=== PATIENT | female | born 1975 ===

== ENCOUNTER 2020-07-06 13:01 | Emergency (ER) | payer BC, SELFPAY ==
[2020-07-06 13:13] VITALS: BP 145/71; PULSE 80; RESP 18; TEMP 36.7; O2SAT 100
--- NOTE | 2020-07-06 13:16 | ED.ALLEREA ---
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 Patient states that she is always gotten large erythematous areas but these are larger than normal. Patient says the itching has not stopped and that is what brought her in today Related Data Home Medications Medication Instructions Recorded Confirmed conj estrog-medroxyprogest ida 1 tablet DAILY 07/06/20 07/06/20 [Prempro] levothyroxine [Synthroid] 75 mcg DAILY 07/06/20 07/06/20 Allergies Allergy/AdvReac Type Severity Reaction Status Date / Time Sulfa (Sulfonamide Allergy Unknown Verified 02/17/09 15:42 Antibiotics) sulfanilamide Allergy Unknown Verified 08/05/12 09:59 Review of Systems Review of Systems: Narrative: CONSTITUTIONAL: Denies fever, chills, or sweats. EYES: Denies visual changes, redness, or discharge. ENT: Denies rhinorrhea, congestion, sore throat, or otalgia. CARDIOVASCULAR:Denies chest pain, palpitations, or edema. RESPIRATORY: Denies cough or dyspnea. GASTROINTESTINAL: Denies abdominal pain, nausea, vomiting, or diarrhea. GENITOURINARY: Denies dysuria or hematuria. SKIN: Reports rash or itching. MUSCULOSKELETAL:Denies back pain, joint pain, or myalgia. NEUROLOGIC: Denies headache, numbness, or weakness. PSYCHIATRIC:Denies anxiety or depression [facility] Family History Family History (Updated 06/02/16 @ 23:21 by DOCTOR UNKNOWN) Mother Hypertension Patient's mother is in good health Father Patient's father is in good health Family history of diabetes mellitus in first degree relative Sibling Patient's sister is in good health Social History Social History Smoking status: Never smoker Gender identity (if verbalized by the patient): Female Comments At time as signature, I have reviewed and agree with nursing past medical, social, surgical and family history. Please see nursing chart for further information. There is no relevant family history pertinent to the presenting complaint. Exam Narrative: Exam Narrative: GENERAL:Well-appearing, well-nourished, and in no acute distress. HEAD:Normocephalic, atraumatic. EYES: PERRLA and EOMI. ENT: Nares clear, no rhinorrhea or epistaxis. Mucous membranes moist. NECK: Supple. CHEST: Clear to auscultation. No respiratory distress. HEART: Regular rate and rhythm. No murmur heard. Normal peripheral pulses. ABDOMEN: Soft, nontender, nondistended, normal active bowel sounds. EXTREMITIES: Normal range of motion. No edema. SKIN: Warm, dry, large circular erythematous areas on bilateral inner thighs left chest wall left upper forearm. NEURO: No focal deficits. Alert and oriented x3. MDM - Allergic Reaction Differential Diagnosis Differential diagnosis: Likely anaphylaxis, allergic reaction, angioedema, contact dermatitis, adverse reaction to drug, viral enanthem and urticaria Discharge Plan Discharge Clinical Impression: Urticaria Allergic reaction Qualifiers: Encounter type: initial encounter Qualified Code(s): T78.40XA - Allergy, unspecified, initial encounter Patient Disposition: Home, Self-Care Condition: Stable Instructions: Antibiotic Form, Urticaria (ED), General Allergic Reaction (ED) Additional Instructions: Use skin creams/lotion, such as those containing calamine or pramoxine to reduce itchiness Avoid scratching when possible to prevent worsening of the condition and disruption of the skin that could lead to bacterial infection To relieve itching, place a cool washcloth or some ice over the area that itches, rather than scratching Return to the office or seek ER visit if condition is not improving or worsens with fever, swelling, difficulty breathing or swallowing. Prescriptions: New prednisone 10
== END 2020-07-06 13:34 | disposition home or self-care (01) ==
PROVIDERS: Emergency Provider Nurse Practitioner Family
DX: L50.0 Allergic urticaria (principal); E03.9 Hypothyroidism, unspecified
CPT/HCPCS: 99213; G0463

== ENCOUNTER 2022-09-09 13:17 | Emergency (ER) | payer BC, SELFPAY ==
[2022-09-09 13:42] VITALS: BP 108/75; PULSE 96; RESP 18; TEMP 36.3; O2SAT 99
--- NOTE | 2022-09-09 14:22 | ED.GENADULT ---
HPI - General Adult General Chief complaint: Nausea/Vomiting/Diarrhea Stated complaint: Dizziness,Nausea Time Seen by Provider: 09/09/22 14:12 Source: patient Mode of arrival: ambulatory Limitations: no limitations History of Present Illness HPI narrative: Patient presents today complaining of an episode of faintness, dizziness, and nausea at home this morning. Patient was working outside going up and down a ladder with her when she felt these symptoms and had to lay down. States the symptoms lasted for about 15 minutes and reports now she only feels fatigued. States she has had many episodes such as this in the past, but they are typically brought on when she exerts herself. States she does not feel that she exerted herself today and is wondering why this episode was brought on. Her denies recent illness, chest pain, shortness of breath, abdominal pain. Related Data Home Medications Medication Instructions Recorded Confirmed conj estrogen-medroxyprogesterone 1 tablet DAILY 07/06/20 09/09/22 0.3 mg-1.5 mg tablet (Prempro) levothyroxine 75 mcg tablet 75 mcg DAILY 07/06/20 09/09/22 (Synthroid) Allergies Allergy/AdvReac Type Severity Reaction Status Date / Time Sulfa (Sulfonamide AdvReac Mild Hives Verified 09/09/22 14:01 Antibiotics) sulfanilamide AdvReac Mild Hives Verified 09/09/22 14:01 Review of Systems Review of Systems: CONSTITUTIONAL: Denies body aches, fever, chills, or sweats.+ fatigue EYES: Denies visual changes, redness, or discharge. ENT: Denies rhinorrhea, congestion, sore throat, or otalgia. CARDIOVASCULAR: Denies chest pain, palpitations, or edema. RESPIRATORY: Denies cough or dyspnea. GASTROINTESTINAL: Denies abdominal pain, nausea, vomiting, or diarrhea. GENITOURINARY: Denies dysuria or hematuria. SKIN: Denies rash, itching, or wounds. MUSCULOSKELETAL: Denies back pain, joint pain, or myalgia. NEUROLOGIC: Denies headache, numbness, tingling, or weakness.+ dizziness, faintness-resolved PSYCH: Denies depression or anxiety. [facility] Past Medical History Medical History (Updated 09/09/22 @ 14:27 by Veronica Castellon, BUSINESS CENTER REPRESENTATIVE, ) Hypothyroidism Family History Family History Mother Hypertension Patient's mother is in good health Father Patient's father is in good health Family history of diabetes mellitus in first degree relative Sibling Patient's sister is in good health Social History Social History Smoking status: Never smoker Gender identity (if verbalized by the patient): Female Comments At time of signature, I have reviewed and agree with nursing past medical, surgical, social and family history unless otherwise noted. Please see nursing chart for further information. There is no relevant family history pertinent to the presenting complaint Exam Narrative: GENERAL: Well-appearing, well-nourished, and in no acute distress. HEAD: Normocephalic, atraumatic. EYES: EOMI. No redness or drainage. Conjunctivae normal. ENT: Mucous membranes pink and moist. Nares clear. No rhinorrhea. TMs normal bilaterally. Throat normal. Uvula midline. NECK: Normal AROM. Supple. No lymphadenopathy. CHEST: No respiratory distress. Clear to auscultation. HEART: Regular rate and rhythm. No murmur appreciated. Normal peripheral pulses. EXTREMITIES: Normal range of motion. No edema. SKIN: Warm, dry, no rash. Capillary refill normal. Normal skin turgor. NEURO: No focal deficits. Alert and oriented x3. Gait steady. PSYCH: Normal affect. No signs of depression or anxiety. Course Course Emergency Course: Patient is no longer experiencing her earlier symptoms. Her episode this morning is similar to past episodes. Discussed seeing how she feels the rest of the weekend and if she still feels not back to baseline, following up with her doctor next week. Level of Ca
== END 2022-09-09 14:28 | disposition home or self-care (01) ==
PROVIDERS: Emergency Provider Nurse Practitioner
DX: R53.83 Other fatigue (principal); E03.9 Hypothyroidism, unspecified
CPT/HCPCS: 87081; 87804; 87880; 99213; G0463

== ENCOUNTER 2023-06-01 10:19 | Emergency (ER) | payer BC, SELFPAY ==
[2023-06-01 10:29] VITALS: BP 130/70; PULSE 70; RESP 16; TEMP 36.6; O2SAT 99
--- NOTE | 2023-06-01 10:50 | ED.URI ---
HPI - URI/Sore Throat General Chief Complaint: Upper Respiratory Infection Stated Complaint: Sore Throat,Lt Ear Irritation Time Seen by Provider: 06/01/23 10:52 History of Present Illness HPI Narrative: 48-year-old female presented for complaint of left ear pain, onset last night. She states the pain is slightly better today. Rates pain 5/10. She denies ear drainage, tinnitus, dizziness, nausea, vomiting, fevers or chills. She also endorses chronic intermittent sore throat, stating she never has ear pain associated with it. She relates sore throat to her thyroid medication. She denies sick contacts. She took ibuprofen last night for pain. Denies any other symptoms. Related Data Home Medications Medication Instructions Recorded Confirmed conj estrogen-medroxyprogesterone 1 tablet DAILY 07/06/20 06/01/23 0.3 mg-1.5 mg tablet (Prempro) levothyroxine 75 mcg tablet 75 mcg DAILY 07/06/20 06/01/23 (Synthroid) Allergies Allergy/AdvReac Type Severity Reaction Status Date / Time guaifenesin [From Entex [place]] AdvReac Mild Hives Verified 06/01/23 10:46 phenylephrine [From Entex [place]] AdvReac Mild Hives Verified 06/01/23 10:46 phenylpropanolamine AdvReac Mild Hives Verified 06/01/23 10:46 [From Entex [place]] Sulfa (Sulfonamide AdvReac Mild Hives Verified 06/01/23 10:36 Antibiotics) sulfanilamide AdvReac Mild Hives Verified 06/01/23 10:36 Review of Systems Review of Systems: CONSTITUTIONAL: Denies body aches, fever, chills, or sweats. EYES: Denies visual changes, redness, or discharge. ENT: Denies rhinorrhea, congestion, reports otalgia. CARDIOVASCULAR: Denies chest pain, palpitations, or edema. RESPIRATORY: Denies dyspnea. GASTROINTESTINAL: Denies abdominal pain, nausea, vomiting, or diarrhea. SKIN: Denies rash, itching, or wounds. MUSCULOSKELETAL: Denies back pain, joint pain, or myalgia. NEUROLOGIC: Denies headache PMFSH Past Medical History Medical History Hypothyroidism Family History Family History Mother Hypertension Patient's mother is in good health Father Patient's father is in good health Family history of diabetes mellitus in first degree relative Sibling Patient's sister is in good health Social History Social History Smoking status: Never smoker Gender identity (if verbalized by the patient): Female Exam Narrative: GENERAL: well-appearing, no acute distress. EYES: conjunctivae clear ENT: Mucous membranes moist. Right TM pearly fermin with normal light reflex; Left TM erythematous and bulging. no tragal tenderness. Oropharynx not erythematous, no Tonsillar enlargement or exudate. No drooling, no hoarseness, no trismus, uvula midline. No tripod positioning, hot potato voice, or soft palate swelling. NECK: Supple. No lymphadenopathy CHEST: Clear to auscultation, breath sounds equal. No respiratory distress, speaks in full sentences. HEART: Regular rate and rhythm. No murmur heard. SKIN: Warm, dry, no rash. NEURO: Alert and oriented x3. Course Course Emergency Course: Patient is aware of diagnosis, understands and agrees to treatment plan. Anticipatory guidance given. Patient agrees to follow-up as directed and is aware of reasons to seek care at the emergency department. Portions of this record may have been created with voice recognition software Level of Care: Express Care Visit Vital Signs Vital signs: Vital Signs Temperature 97.8 F 06/01/23 10:29 Pulse Rate 70 06/01/23 10:29 Respiratory Rate 16 06/01/23 10:29 Blood Pressure 130/70 06/01/23 10:29 Pulse Oximetry 99 06/01/23 10:29 Oxygen Delivery Room Air 06/01/23 10:29 Temperature 97.8 F 06/01/23 10:29 Pulse Rate 70 06/01/23 10:29 Respiratory Rate 16 06/01/23 10:29 Blood Pressure 130/70 06/01/23 10:
== END 2023-06-01 11:02 | disposition home or self-care (01) ==
PROVIDERS: Emergency Provider Nurse Practitioner Family
DX: H66.92 Otitis media, unspecified, left ear (principal); E03.9 Hypothyroidism, unspecified
CPT/HCPCS: 99213; G0463

== ENCOUNTER 2025-04-28 20:52 | Emergency (ER) | payer BC, SELFPAY ==
--- NOTE | ~2025-04-28 | CT_ITS ---
CTA brain carotid Ordering provider: Ezra Ortega MD History: . eye change/neck surgery 04/22. right eye dilated . Comparison: None. Technique: CT angiogram head and neck was performed following timed intravenous injection of contrast . Thin slice axial images and reformatted coronal images were obtained. Three dimensional reformatted images of the brain were also obtained using a [employer] workstation. FINDINGS: HEAD: --ANTERIOR AND MIDDLE CEREBRAL ARTERIES AND BRANCHES: Normal caliber and contour. --INTERNAL CAROTID ARTERIES: Normal caliber and contour. --BASILAR ARTERY AND BRANCHES: Normal caliber and contour. No atheromatous disease. 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 --ANEURYSM: None visualized. --BRAIN: The ventricles are normal in size, shape and position. There is no mass, mass effect or midline shift. There is no abnormal extra-axial fluid collection or intracranial hemorrhage. Visualized paranasal sinuses are clear. The mastoid air cells are well aerated. No acute displaced fractures within the overlying cranium. NECK: --RIGHT CERVICAL CAROTID SYSTEM: Normal caliber and contour. Percent stenosis per NASCET criteria is 0% No carotid dissection. --LEFT CERVICAL CAROTID SYSTEM: Normal caliber and contour. Percent stenosis per NASCET criteria is 0% No carotid dissection. --VERTEBRAL ARTERIES: Normal caliber and contour. --VISUALIZED AORTIC ARCH AND BRANCHING VESSELS: Normal caliber and contour. No significant atheromato us disease. --SOFT TISSUES: Postoperative change is identified within the soft tissues anterior to the cervical s pine, consistent with recent intervention. No acute hemorrhage is appreciated. Trace soft tissue swelling, right greater than left, but not at the level of the carotid artery bifur cation, as one would expect from patient's presenting symptoms. --CERVICAL SPINE: Anterior fixation at the levels of C4 through C7. IMPRESSION: 1. Normal CTA head and neck. Percent stenosis per NASCET criteria is 0% Reviewed, dictated and finalized at location A.
[2025-04-28 21:01] VITALS: BP 136/70; PULSE 87; RESP 18; TEMP 36.3; O2SAT 100
[2025-04-28 21:25] LABS: Basophils Absolute Auto 0.1 K/mm3 (0.0-0.1); Basophils Percent Auto 0.6 % (0.2-1.2); Eosinophils Absolute Auto 0.6 K/mm3 (0-0.3); Eosinophils Percent Auto 5.8 % (0-4.4); Hematocrit 38.3 % (37.0-47.0); Hemoglobin 12.5 g/dL (12.0-15.0); Immature Granulocyte Absolute 0.02 K/mm3 (0.00-0.031); Immature Granulocyte Percent A 0.2 % (0-0.5); Lymphocytes Absolute Auto 3.41 K/mm3 (0.9-3.2); Lymphocytes Percent Auto 35.7 % (18.3-44.2); Mean Corpuscular HGB Conc 32.6 g/dl (32-36); Mean Corpuscular Hemoglobin 27.7 pg (26-34); Mean Corpuscular Volume 84.9 fl (80-100); Mean Platelet Volume 8.9 fl (7.4-10.4); Monocytes Absolute Auto 0.7 K/mm3 (0.1-0.6); Neutrophils Absolute Auto 4.8 K/mm3 (1.3-6.7); Neutrophils Percent Auto 50.7 % (45.5-73.1); Platelet Count Result 359 k/mm3 (150-375); Red Blood Count 4.51 M/mm3 (4.2-5.4); Red Cell Distribution Width 13.5 % (11.5-14.5); White Blood Count 9.6 K/mm3 (4.5-10.0)
--- NOTE | 2025-04-28 21:25 | ED.GENADULT ---
HPI - General Adult General Chief complaint: Eye Problems Stated complaint: dilated right eye, neck surgery 04/22 Time Seen by Provider: 04/28/25 21:09 History of Present Illness HPI narrative: 49-year-old female present to the emergency department for evaluation for right eye pupil dilation that she noticed acutely this evening. Patient states she has had some change in patient over the last few days where she reports she has needed her reading glasses more often. Patient did have spinal surgery at [facility] few weeks ago. Patient denies any recent falls or injuries. Patient denies any focal numbness or weakness. Related Data Home Medications ?Medication ?Instructions ?Recorded ?Confirmed ?Last Taken ?Type conj estrogen-medroxyprogesterone 1 tablet DAILY 07/06/20 06/01/23 Unknown History 0.3 mg-1.5 mg tablet (Prempro) levothyroxine 75 mcg tablet 75 mcg DAILY 07/06/20 06/01/23 Unknown History (Synthroid) Allergies Allergy/AdvReac Type Severity Reaction Status Date / Time guaifenesin (From Entex [place]) AdvReac Mild Hives Verified 06/01/23 10:46 phenylephrine (From Entex [place]) AdvReac Mild Hives Verified 06/01/23 10:46 phenylpropanolamine (From AdvReac Mild Hives Verified 06/01/23 10:46 Entex [place]) Sulfa (Sulfonamide AdvReac Mild Hives Verified 06/01/23 10:36 Antibiotics) sulfanilamide AdvReac Mild Hives Verified 06/01/23 10:36 Review of Systems Review of Systems: All systems reviewed & are unremarkable except as noted in HPI and below PMFSH Past Medical History Medical History Hypothyroidism Family History Family History Mother Hypertension Patient's mother is in good health Father Patient's father is in good health Family history of diabetes mellitus in first degree relative Sibling Patient's sister is in good health Social History Social History Smoking status: Never smoker Gender identity (if verbalized by the patient): Female Exam Narrative: APPEARANCE: Well appearing, no pain, no distress, well-nourished. HEAD: normocephalic, atraumatic. EYES: Mild dilation of right pupil compared to left. Patient does have some constriction of the right pupil with light and patient does have mild consensual pupil constriction when shining a light in the left eye, normal fundus exam, normal visual field NOSE: Normal no drainage EARS:TMS clear with good light reflex. THROAT: Pharynx clear, no exudate. NECK: Supple. No adenopathy, no masses. RESPIRATORY: Airway patent, respirations nonlabored. Clear to auscultation bilaterally, no rales, rhonchi, wheezing. CARDIOVASCULAR: Regular rate and rhythm without murmurs rubs or gallops. ABDOMINAL: Soft, nontender, nondistended, normal bowel sounds MUSCULOSKELETAL: Moves all extremities. Strength/ROM intact, No edema, No calf tenderness. NEURO: Alert. Cranial nerves II through XII intact. Good gait. Good coordination SKIN: Warm, dry. Normal Color Course Vital Signs Vital signs: Vital Signs Temperature 97.4 F L 04/28/25 21:01 Pulse Rate 87 04/28/25 21:01 Respiratory Rate 18 04/28/25 21:01 Blood Pressure 136/70 04/28/25 21:01 Pulse Oximetry 100 04/28/25 21:01 Oxygen Delivery Room Air 04/28/25 21:01 Temperature 97.4 F L 04/28/25 21:01 Pulse Rate 81 04/28/25 23:10 Respiratory Rate 16 04/28/25 23:10 Blood Pressure 122/87 04/28/25 23:10 Pulse Oximetry 99 04/28/25 23:10 Oxygen Delivery Room Air 04/28/25 21:01 Medical Decision Making [facility] Narrative Medical decision making narrative: 49-year-old female presented emergency department for evaluation for dilation of the right pupil. Patient denies any falls or injuries. Patient denies any significant patient changes in that right eye. Patient does have some mild ability to constrict the pupil and it decreases in size by approximately 2 mm with light. CTA was negative for head and neck. Patient has normal tone upper and pressures for both eyes. These ranged from 14-15 bilaterally. Case was discussed with Neurology and he felt this is most likely physiologic and stated that the patient could be discharged home with outpatient follow-up. Patient family were comfortable the plan for discharge and follow-up. They were encouraged follow-up with Ophthalmology and will be provided outpatient follow-up with Neurology. They also encouraged follow-up with her neurosurgeon. Differential Diagnosis Differential Diagnosis: CVA, TIA, glaucoma, right with attachment, cranial nerve injury Vital Signs Vital Signs: Vital Signs Temperature 97.4 F L 04/28/25 21:01 Pulse Rate 87 04/28/25 21:01 Respiratory Rate 18 04/28/25 21:01 Blood Pressure 136/70 04/28/25 21:01 Pulse Oximetry 100 04/28/25 21:01 Oxygen Delivery Room Air 04/28/25 21:01 Temperature 97.4 F L 04/28/25 21:01 Pulse Rate 81 04/28/25 23:10 Respiratory Rate 16 04/28/25 23:10 Blood Pressure 122/87 04/28/25 23:10 Pulse Oximetry 99 04/28/25 23:10 Oxygen Delivery Room Air 04/28/25 21:01 Lab Data Lab results reviewed: Yes I reviewed the patient's lab results. 04/28/25 21:18 04/28/25 21:28 Labs: Lab Results 04/28/25 04/28/25 Range/Units 21:18 21:28 WBC 9.6 (4.5-10.0) K/mm3 RBC 4.51 (4.2-5.4) M/mm3 Hgb 12.5 (12.0-15.0) g/dL Hct 38.3 (37.0-47.0) % MCV 84.9 (80-100) fl MCH 27.7 (26-34) pg MCHC 32.6 (32-36) g/dl RDW 13.5 (11.5-14.5) % Plt Count 359 (150-375) k/mm3 MPV 8.9 (7.4-10.4) fl Immature Gran % (Auto) 0.2 (0-0.5) % Neut % (Auto) 50.7 (45.5-73.1) % Lymph % (Auto) 35.7 (18.3-44.2) % Atkinson % (Auto) 7.0 (2.6-8.5) % Eos % (Auto) 5.8 H (0-4.4) % Baso % (Auto) 0.6 (0.2-1.2) % Lymph # (Auto) 3.41 H (0.9-3.2) K/mm3 Atkinson # (Auto) 0.7 H (0.1-0.6) K/mm3 Eos # (Auto) 0.6 H (0-0.3) K/mm3 Baso # (Auto) 0.1 (0.0-0.1) K/mm3 Abs Immat Gran (auto) 0.02 (0.00-0.031) K/mm3 Absolute Neuts (auto) 4.8 (1.3-6.7) K/mm3 Absolute Nucleated RBC 0.000 (0.0-0.012) K/mm3 Nucleated RBC % 0.0 (0.0-0.2) % PT 13.4 (11.1-14.7) Seconds INR 1.0 APTT 33.3 (22.3-36.8) Seconds Sodium 140 (137-145) mmol/L Potassium 4.1 (3.4-5.0) mmol/L Chloride 105 (98-107) mmol/L Carbon Dioxide 25 (22-30) mmol/L Anion Gap 10 (4-12) mmol/L BUN 15 (7-17) mg/dL Creatinine 0.73 0.80 (0.7-1.0) mg/dL Estim Creat Clear Calc 81 74 ml/min Estimated GFR > 60 > 60 (59 - ) Glucose 111 H (65-110) mg/dL Calcium 9.7 (8.4-10.2) mg/dL Total Bilirubin 0.2 (0.2-1.3) mg/dL AST 31 (14-36) U/L ALT 21 (6-35) U/L Alkaline Phosphatase 77 (38-126) U/L Total Protein 7.5 (6.3-8.2) g/dL Albumin 4.4 (3.5-5.1) g/dL Imaging Data Radiologist's impression: Impressions Head/Neck CTA 04/28/25 22:01 IMPRESSION: 1. Normal CTA head and neck. Percent stenosis per NASCET criteria is 0% Discharge Plan Discharge Clinical Impression: Enlargement of one pupil Patient Disposition: Home Condition: Stable Instructions: Antibiotic Form Additional Instructions: Have close follow-up with Ophthalmology for additional exam of the right eye. Have follow-up with Neurology for additional outpatient evaluation. Continue to have close follow-up with your neurosurgeon. If you have any worsening symptoms or if you have any questions or concerns then please call or return to the emergency department Patient Language: Icelandic Prescriptions: No Action levothyroxine [Synthroid] 75 mcg tablet 75 mcg DAILY Prempro 0.3-1.5 mg tablet 1 tablet DAILY amoxicillin-pot clavulanate 875-125 mg tablet 1 tablet PO Q12H 7 Days Qty: 14 0RF Follow-up/Referrals: Alfa Olsen MD [Physician] - PHYSICIAN NOT ON STAFF,NONSTAFF [Primary Care Provider] -
[2025-04-28 21:30] LABS: Estimated CRCL calculation 74 ml/min; Estimated Glomerular Filt Rate > 60
[2025-04-28 21:34] LABS: Prothrombin Time 13.4 Seconds (11.1-14.7)
[2025-04-28 21:35] LABS: Partial Thromboplastin Time 33.3 Seconds (22.3-36.8)
[2025-04-28 21:36] LABS: Alanine Aminotransferase 21 U/L (6-35); Albumin Level 4.4 g/dL (3.5-5.1); Alkaline Phosphatase 77 U/L (38-126); Anion Gap 10 mmol/L (4-12); Aspartate Amino Transferase 31 U/L (14-36); Bilirubin,Total 0.2 mg/dL (0.2-1.3); Blood Urea Nitrogen 15 mg/dL (7-17); Calcium 9.7 mg/dL (8.4-10.2); Carbon Dioxide 25 mmol/L (22-30); Chloride 105 mmol/L (98-107); Estimated CRCL calculation 81 ml/min; Estimated Glomerular Filt Rate > 60; Glucose 111 mg/dL (65-110); Potassium 4.1 mmol/L (3.4-5.0); Sodium 140 mmol/L (137-145); Total Protein 7.5 g/dL (6.3-8.2)
[2025-04-28 23:10] VITALS: BP 122/87; PULSE 81; RESP 16; O2SAT 99
== END 2025-04-28 23:13 | disposition home or self-care (01) ==
PROVIDERS: Emergency Provider Emergency Medicine
DX: H57.04 Mydriasis (principal); E03.9 Hypothyroidism, unspecified; Z79.899 Other long term (current) drug therapy
CPT/HCPCS: 36415; 70496; 70498; 80053; 85025; 85610; 85730; 99284; Q9967

== ENCOUNTER 2025-06-29 18:55 | Emergency (ER) | payer BC, SELFPAY ==
--- OUTSIDE RECORDS SUMMARY | 2025-06-04 06:15 | XMS_ITS | Continuity of Care Document ---
Author Organization [facility] Address [address] [address] [place] [address] Phone Care Team Providers Care Arc Air Operator Name Role Phone Margot ANDRE, Bob Unavailable Unavailable Allergies, Adverse Reactions, Alerts Substance Reaction Status Criticality Sulfa (Sulfonamide Antibiotics) Active No Information Medications Medication Instructions Dosage Effective Dates (start - stop) Status Comments docusate sodium 100 mg capsule take 2 capsule by oral route twice daily for post op - Active ondansetron [address] 1 tablet by translingual route 2 times every day on top of the tongue where it will dissolve, then swallow for post op 8 MG - Active hydrocodone 5 mg-acetaminophen 325 mg tablet take 1 tablet by oral route every 6 hours as needed for pain for post op 1.00 tablet - Active Valium 5 mg tablet take 1 tablet by oral route 2 times every day for post op 5 MG - Active Synthroid 75 mcg tablet - Active Prempro 0.3 mg-1.5 mg tablet - Active Procedures Procedure Date RADEX SPI CRV 2/3 VIEWS RADEX SPI CRV 2/3 VIEWS POSTOP FOLLOW-UP VISIT RADEX SPI CRV 2/3 VIEWS POSTOP FOLLOW-UP VISIT OFFICE/OUTPATIENT VISIT EST Cervical collar foam 2 pc OFFICE/OUTPATIENT VISIT EST NECK SPINE FUSE&REMOV BEL C2 RADEX SPI CRV 2/3 VIEWS OFFICE/OUTPATIENT VISIT EST RADEX SHAINA COMPL MINIMUM 2 VIEWS 025 OFFICE/OUTPATIENT VISIT NEW OFFICE/OUTPATIENT VISIT EST OFFICE CONSULTATION Advance Directives Directive Yes / No Effective Date File Name No Information Encounters Encounter Description Practice Location Reason(s) For Visit Diagnoses Date Provider Providers Copied on Encounter [facility], [address], [place], [address], [place] tel:[phone] [facility] CervicalgiaFusi on of spine, cervical regionPost-oper ative state 5 Margot Bob. [address], [place], [place], [id number], [place]. tel:[phone] Referring Provider: Buffy Matthews, [address] [facility] [address], [place], [address] . tel:[phone] [facility], [address], [place], [address], [place] tel:[phone] [facility] CervicalgiaFusi on of spine, cervical regionPost-oper ative [facility] 5 Gomez Del Real. [address], [place], [place], [id number], [place]. tel:[phone] Referring Provider: Buffy Matthews, [address] [facility] [address], [place], [address] . tel:[phone] OFFICE/OUTPAT IENT VISIT EST [facility], [address], [place], [address], [place] tel:[phone] [facility] Other spondylosis with myelopathy, cervical regionAbnormal reflex 5 Margot Bob. [address], [place], [place], [address], [place]. tel:[phone] Referring Provider: Buffy Matthews, [address] [facility] [address], [place], [address] . tel:[phone] OFFICE/OUTPAT IENT VISIT EST [facility], [address], [place], [address], [place] tel:[phone] [facility] Adhesive capsulitis of left shoulder Star-0 - 5 Erikarona Angulo. [address], [place], [place], [address], [place]. tel:[phone] Referring Provider: Buffy Matthews, [address], [place], [address] . tel:[phone] [facility], [address], [place], [address], [place] tel:[phone] [facility] Other spondylosis with myelopathy, cervical regionAbnormal reflexSpinal stenosis, cervical region May-1 3-202 5 Margot Bob. [address], [place], [place], [address], [place]. tel:[phone] OFFICE/OUTPAT IENT VISIT EST [facility], [address], [place], [address], [place] tel:[phone] [facility] CervicalgiaOthe r spondylosis with myelopathy, cervical regionAbnormal reflexAdhesive capsulitis of left shoulder May-0 -202 5 Margot Bob. [address], [place], [place], [id number], [place]. tel:[phone] Referring Provider: Buffy Matthews, [facility] [facility] [address], [place], [address] . tel:[phone] OFFICE/OUTPAT IENT VISIT NEW [facility], [address], [place], [address], [place] tel:[phone] [facility] Pain in left shoulderAdhesiv e capsulitis of left shoulderCentral spinal stenosis Apr-2 5- 5 Erika Angulo. [address], [place], [place], [id number], [place]. tel:[phone] Referring Provider: Buffy Matthews, [address] [facility] [address], [place], [address] . tel:[phone] OFFICE/OUTPAT IENT VISIT EST [facility], [address] [facility] [address], [place], [address], [place] tel:[phone] [facility] Spinal stenosis, cervical regionRadiculop athy, cervical region 1 Césarmayra Gutierrez. [address], [place], [address]. tel:[phone] OFFICE CONSULTATION [facility], [address] [address], [place], [address], [place] tel:[phone] [facility] Body mass index [BMI] 34.0-34.9, adultSpinal stenosis, cervical regionSpondylos is without myelopathy or radiculopathy, lumbosacral regionRadiculop athy, cervical region 1 Jordan Gutierrez. [address], [place], [address]. tel:[phone] Referring Provider: Buffy Matthews, [address] [facility] [address], [place], [address] . tel:[phone] Family History Family Member Type Diagnosis Age At Onset Father Problem Alive and well Payers Payer name Insurance type Covered constitution party ID Authorsonnya ivan(s) Blue Access Choice PPO [id number] Social History Type Description Quantity Date Captured Comments Alcohol Use Details Unknown Caffeine Use Details Unknown Tobacco Use Status No Information Smoking Status No Information Sex Female Chief Complaint And Reason For Visit No Information Reason For Referral Reason For Referral No Information Plan Of Treatment Date Type Action Status Referral Ordered: RADEX SPI CRV 2/3 VIEWS ordered Referral Ordered: RADEX SPI CRV 2/3 VIEWS spine, cervical ordered Referral Ordered: RADEX SHAINA COMPL MINIMUM 2 VIEWS LT ordered Appointment Robina Colon Scheduled Appointment Robina Colon Scheduled History Of Present Illness Encounter Date Complaint History Of Prese nt Illness No Information Functional Status Date Functional Assessmen t No Information Instructions Date Instruction Additional Infor darren Weight monitoring Related to Bod y mass index [BMI] 34.0-34.9, adult Assessments Type Assessment Date assessment Cervicalgia assessment Fusion of spine, cervical region assessment Post-operative state Patient Care Teams Name Effective Dates (start - stop) Status Members No Information
--- OUTSIDE RECORDS SUMMARY | 2025-06-29 18:58 | XMS_ITS | Clinical Summary ---
Author Organization [facility] Address [address] [facility] [place] [address] Care Team Providers Care Recreation Superintendent Name Role Phone Buffy Cheng MD Primary Care Provider [phone] Source Comments [facility],non-owned Affiliates and Associated Physician Practices is amultiple site organization consisting of ambulatory clinics and hospital sitesin [place] and [place]. This disclosure is being madepursuant to the Care Everywhere program and may not contain all information available regarding this patient. Last updated 18.[facility] Allergies Active Allergy Reactions Criticality Noted Date Comments Sulfa Drugs Urticaria Medium 01/13/2019 Medications * Be aware that medications may not be up to date on this document. Alwaysverify current medications with the patient. 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 Gender Identity Not on file Sexual Orientation Not on file Last Filed Vital Signs Vital Sign Reading Time Taken Comments Blood Pressure 102/59 01/13/2019 12:35 PM CDT Pulse 67 01/13/2019 12:35 PM CDT Temperature - - Respiratory Rate 16 01/13/2019 12:35 PM CDT Oxygen Saturation 98% 01/13/2019 12:35 PM CDT Inhaled Oxygen Concentration - - Weight 81.6 kg (180 lb) 01/13/2019 10:35 AM CDT Height 157.5 cm (5' 2) 01/13/2019 10:35 AM CDT Body Mass Index 32.92 01/13/2019 10:35 AM CDT Plan of Treatment Health Maintenance Due Date Last Done Comments COLOGUARD (AGES 45-75) - COL ON CA SCREENING 1973 CT COLONOGRAPHY - COLON CA SCREENING 1973 FIT - COLON CA SCREENING 1973 FLEX SIG - COLON CA SCREENING 1973 LIPID TESTING 1973 MAMMOGRAM 1973 HIV SCREENING 1988 HEPATITIS C SCREENING 04/25/1991 DTAP/TDAP/TD VACCINES (1 - Tdap) 1992 HEPATITIS B VACCINE (1 of 3 - 19+ 3-dose series) 1992 PNEUMOCOCCAL VACCINE 50+ (1 of 1 - PCV) 2023 ZOSTER VACCINE (1 of 2) 2023 COVID-19 VACCINE (1 - 2023-2 5 season) 2024 DEPRESSION SCREENING 11/05/2024 INFLUENZA VACCINE (#1) 2025 COLON MONITORING 01/13/2029 01/13/2019, 01/13/2019, 01/13/2019 COLONOSCOPY - COLON CA SCREENING 01/13/2029 01/13/2019, 01/13/2019, 01/13/2019 Colorectal Cancer Screening 01/13/2029 HIB VACCINE Aged Out No longer eligi ble based on patient's age to complete this topic HPV VACCINE Aged Out No longer eligi ble based on patient's age to complete this topic MENINGOCOCCAL (Group B) VACCINE SHARED DECISION-MAKING Aged Out No longer eligible based on patient's age to complete this topic MENINGOCOCCAL GROUPS A/C/Y/W VACCINE Aged Out No longer eligible b ased on patient's age to complete this topic Procedures Procedure Name Priority Date/Time Associated Diagnosis Comments ENDOSCOPY, COLON, SCREENING Routine 01/13/2019 11:31 AM CDT from Last 3 Months or Most Recently Relevant to Health Maintenance Results * ENDOSCOPY, COLON, SCREENING (01/13/2019 11:31 AM CDT) Report Endoscopy POC _ Patient Name: Robina Colon Procedure Date: 01/13/2019 11:31 AM Date of : 1975 Admit Type: Outpatient Age: 43 Gender: Female Attending MD: Jake Franz MD _ Procedure: Colonoscopy Indications: Colon cancer screening in patient at increased risk: Family history of 1st-degree relative with colon polyps before age 60 years Providers: Jake Franz MD (Doctor), Zoë Schwartz, RN, Clay Landry, Supervisor Ship Maintenance Services Referring MD: Buffy Cheng MD (Referring MD) Medicines: Midazolam 4 mg IV, Meperidine 75 mg IV Complications: No immediate complications. _ Procedure: Pre-Anesthesia Assessment: - Prior to the procedure, a History and Physical was performed, and patient medications and allergies were reviewed. The patient is competent. The risks and benefits of the procedure and the sedation options and risks were discussed with the patient. All questions were answered and informed consent was obtained. Patient identification and proposed procedure were verified by the physician, the nurse and the data technician in the procedure room. Mental Status Examination: alert and oriented. Airway Examination: normal oropharyngeal airway and neck mobility. Respiratory Examination: clear to auscultation. CV Examination: normal. Prophylactic Antibiotics: The patient does not require prophylactic antibiotics. Prior Anticoagulants: The patient has taken no previous anticoagulant or antiplatelet agents. ASA Grade Assessment: II - A patient with mild systemic disease. After reviewing the risks and benefits, the patient was deemed in satisfactory condition to undergo the procedure. The anesthesia plan was to use moderate sedation / analgesia (conscious sedation). Immediately prior to administration of medications, the patient was re-assessed for adequacy to receive sedatives. The heart rate, respiratory rate, oxygen saturations, blood pressure, adequacy of pulmonary ventilation, and response to care were monitored throughout the procedure. The physical status of the patient was re-assessed after the procedure. After I obtained informed consent, the scope was passed under direct vision. Throughout the procedure, the patient's blood pressure, pulse, and oxygen saturations were monitored continuously. The Colonoscope was introduced through the anus and advanced to the terminal ileum, with identification of the appendiceal orifice and IC valve. The ileocecal valve, the appendiceal orifice and the rectum were photographed. Impression: - One 8 mm polyp in the sigmoid colon, removed with a jumbo cold forceps. Resected and retrieved. - The examination was otherwise normal on direct and retroflexion views. Findings: The perianal and digital rectal examinations were normal. Pertinent negatives include normal sphincter tone. A 8 mm polyp was found in the sigmoid colon. The polyp was semi-pedunculated . The polyp was removed with a jumbo cold forceps. Resection and retrieval were complete. Verification of patient identification for the specimen was done. Estimated blood loss was minimal. The exam was otherwise without abnormality on direct and retroflexion views. _ Recommendation: - Written discharge instructions were provided to the patient. - The signs and symptoms of potential delayed complications were discussed with the patient. - Patient has a contact number available for emergencies. - Return to normal activities tomorrow. - Discharge patient to home (ambulatory). - Continue present medications. - Repeat colonoscopy in 3 - 5 years for surveillance. - Return to primary care physician as previously scheduled. - Telephone my office for pathology results in 2 weeks. Procedure Code(s): --- Professional --- 57501, Colonoscopy, flexible; with biopsy, single or multiple --- Technical --- 03695, Colonoscopy, flexible; with biopsy, single or multiple Diagnosis Code(s): --- Professional --- Z83.71, Family history of colonic polyps D12.5, Benign neoplasm of sigmoid colon --- Technical --- Z83.71, Family history of colonic polyps D12.5, Benign neoplasm of sigmoid colon CPT copyright 2017 [employer]. All rights reserved. The codes documented in this report are preliminary and upon real time trader review may be revised to meet current compliance requirements. Jake Franz MD 01/13/2019 12:05:32 PM This report has been signed electronically. Number of Addenda: 0 Note Initiated On: 01/13/2019 11:31 AM [facility] 01/13/2019 11:3 1 AM CDT Jake Franz MD GI PROCEDURE ORDERABLES Edited Result - Final [facility] ENDOSCOPY from Last 3 Months or Most Recently Relevant to Health Maintenance Insurance CAROL ANN Member Subscriber Plan / Payer (Ef fective for All Dates) Name:Robina Colno Relation to Subscriber:Self Name:Robina Colon Payer ID:[id number] (NAIC) Type:O Address: [address] [place] [phone] Care Teams Recreation Superintendent Relationship Specialty Start Date End Date Buffy Cheng MD [address] [address] PCP - General Internal Medicine 01/13/19
--- OUTSIDE RECORDS SUMMARY | 2025-06-29 18:58 | XMS_ITS | Clinical Summary ---
Author Organization [facility] Address [address] [place] [address] Care Team Providers Care Manager Program Management Name Role Phone Buffy Cheng MD Primary Care Provider Allergies Active Allergy Reactions Criticality Noted Date Comments Phenylephrine-Guaifene sin Swelling,Headache Low 01/15/2024 Eye swelling, intense CHRISTIE Sulfa (Sulfonamide Antibiotics) Hives,Headache High 02/10/2015 Medications SYNTHROID 75 mcg tablet 01/25/2016 Active Active Problems Problem Noted Date Diagnosed Date Endometrial cancer 04/07/2024 Cancer Staging:Clinical stage from 03/21/2024:FIGO Stage IA(cT1a, cN0, cM0) - Signed by Sheila Meek MD on 04/07/2024 S/P hysterectomy 03/22/2024 Encounters Date Type Department Care Team Description 06/23/2025 External Device Data STL ABSTRACTION Provider, Abstract 05/20/2025 External Device Data STL ABSTRACTION Provider, Abstract 05/20/2025 External Device Data ST[facility] ABSTRACTION Provider, Abstract 05/19/2025 External Device Data ST[facility] ABSTRACTION Provider, Abstract 05/14/2025 7:39 AM CDT - 05/14/2025 11:59 PM CDT Hospital Encounter [facility] Imaging Services [facility] [address] [place] [address] Girish Herrera MD Discharge Disposition: Home or Self Care 05/05/2025 External Device Data STL ABSTRACTION Provider, Abstract 2025 Transcribe Orders [facility] [address] [place] [id number] Girish Herrera MD 04/22/2025 External Device Data STL ABSTRACTION Provider, Abstract 04/21/2025 External Device Data ST[facility] ABSTRACTION Provider, Abstract 04/13/2025 3:00 PM CDT Office Visit [facility] Gynecologic Oncology [place] [address] [place] [address] Sheila Meek MD Encounter for follow-up surveillance of endometrial cancer (Primary Dx) 03/31/2025 External Device Data STL ABSTRACTION Provider, Abstract from Last 3 Months Family History Medical History Relation Name Comments Diabetes Father Hypertension Maternal Grandmother low blo od pressure Hypertension Mother Colon Cancer Paternal Grandmother Thyroid Disease Paternal Grandmother Breast Cancer Neg Hx Ovarian Cancer Neg Hx Relation Name Status Comments Father Alive Maternal Grandmother Alive Mother Alive Paternal Grandmother Social History Tobacco Use Types Packs/Day Years Used Date Smoking Tobacco: Never Smokeless Tobacco: Never Alcohol Use Standard Drinks/Week Comments No 0 (1 standard drink = 0.6 oz pur e alcohol) Feeling Safe Answer Date Recorded Are you in a relationship wi th someone who hurts you emotionally and/or physically? No 04/13/2025 Food Insecurity Answer Date Recorded Patient needs follow up regardin 02/26/2025 Transportation Needs Answer Date Record ed Patient needs follow up regardin 02/26/2025 Housing Stability Answer Date Recorded Social/Environmental Concerns No concerns Utility Needs Answer Date Recorded Patient needs follow up regardin 02/26/2025 Comments No Sex and Gender Information Value Date Recorded Sex Assigned at Not on file Legal Sex Female 9:44 AM CABINETMAKER SUPERVISOR Gender Identity Not on file Sexual Orientation Not on file Last Filed Vital Signs Vital Sign Reading Time Taken Comments Blood Pressure 118/74 04/13/2025 3:08 PM CDT Pulse 78 04/13/2025 3:08 PM CDT Temperature 36.9 C (98.4 F) 04/13/2025 3:08 PM CDT Respiratory Rate 18 01/21/2025 10:23 AM CDT Oxygen Saturation 96% 04/13/2025 3:08 PM CDT Inhaled Oxygen Concentration - - Weight 90.4 kg (199 lb 6 oz) 04/13/2025 3:08 PM CDT Height 156.2 cm (5' 1.5) 04/13/2025 3:08 PM CDT Body Mass Index 37.06 04/13/2025 3:08 PM CDT Plan of Treatment Upcoming Encounters Date Type Department Care Team (Late st Contact Info) Description 09/21/2025 3:30 PM CABINETMAKER SUPERVISOR Appointment [facility] [place] [address] [facility] [address] [place] [phone] [place] [address] [place] [address] 11/30/2025 11:20 AM CABINETMAKER SUPERVISOR Office Visit [facility] RESEARCH/PROGRAM DIRECTOR [facility] [address] [place] [address] [place] [address] [place] [address] 04/14/2026 2:30 PM CDT Office Visit [facility] Gynecologic Oncology [place] [address] [facility] [address] [place] [address] Sheila Meek MD [address] [facility] [address] [place] [address] Health Maintenance Due Date Last Done Comments Pre-Diabetes and Diabetes Screening 1975 DTAP/TDAP/TD VACCINES (1 - Tdap) 1992 HEPATITIS B VACCINES (1 of 3 - 19+ 3-dose series) 1992 FIT-DNA Q 3 years 2018 FIT/FOBT Q 1 year 2018 Flex Sig/CT Colonography Q 5 years 2018 ZOSTER VACCINE (1 of 2) 2023 INFLUENZA VACCINE (#1) 2025 09/05/2020 BREAST CANCER SCREENING 09/18/2025 09/18/20 24, 07/16/2023, 07/12/2022, Additional history exists COLORECTAL SCREENING 01/22/2032 01/21/2025, 01/21/2025, 01/13/2019, Additional history exists Colorectal Cancer Screening 01/22/2032 Procedures Procedure Name Priority Date/Time Associated Diagnosis Comments MRI ORBIT FACE NECK W WO CONTRAST Routine 05/14/2025 8:59 AM CDT [facility] COLONOSCOPY REPORT 01/21/2025 10 :05 AM CDT MAMMO 3D AUBRIE SCREEN BILAT W OR WO CAD Routine 09/18/2024 3:39 PM CABINETMAKER SUPERVISOR Breast cancer screening by mammogram from Last 3 Months or Most Recently Relevant to Health Maintenance Results * MRI ORBIT FACE NECK W WO CONTRAST (05/14/2025 8:59 AM CDT) Anatomical Region Laterality Modality Head Magnetic Resonan ce 05/14/2025 12:4 3 PM CDT Impressions 05/14/2025 2:36 PM CDT IMPRESSION: No intraorbital abnormality. Please be aware that whole brain imaging was not performed as part of this study.. Narrative 05/14/2025 2:36 PM CDT EXAM: MRI ORBIT FACE NECK W WO CONTRAST DATE: 05/14/2025 9:17 AM HISTORY: [facility] TECHNIQUE: Multiplanar multisequencing images of the orbits were performed with and without contrast. COMPARISON: None. CONTRAST: GADOPICLENOL 0.5 MMOL/ML INTRAVENOUS SOLUTION Given:9 mL FINDINGS: No intraorbital abnormalities are noted. The optic nerves are symmetric bilaterally and normal in signal intensity. The optic chiasm is normal. The pituitary gland is normal. Cavernous sinuses appear normal. No intraorbital masses are noted. The globes are symmetric bilaterally. The lenses are normal. Visualized portions of the brain are unremarkable. No focal brain imaging was performed. There is no restricted diffusion. Procedure Note Reva Jack MD - 05/14/2025 EXAM: MRI ORBIT FACE NECK W WO CONTRAST DATE: 05/14/2025 9:17 AM HISTORY: [facility] TECHNIQUE: Multiplanar multisequencing images of the orbits were performed with and without contrast. COMPARISON: None. CONTRAST: GADOPICLENOL 0.5 MMOL/ML INTRAVENOUS SOLUTION Given:9 mL FINDINGS: No intraorbital abnormalities are noted. The optic nerves are symmetric bilaterally and normal in signal intensity. The optic chiasm is normal. The pituitary gland is normal. Cavernous sinuses appear normal. No intraorbital masses are noted. The globes are symmetric bilaterally. The lenses are normal. Visualized portions of the brain are unremarkable. No focal brain imaging was performed. There is no restricted diffusion. IMPRESSION: No intraorbital abnormality. Please be aware that whole brain imaging was not performed as part of this study.. us Girish Herrera MD MR ORDERABLES Final Result * COLONOSCOPY REPORT (01/21/2025 10:05 AM CDT) Narrative Procedure Note Lety Castillo DO - 01/21/2025 10:05 AM CDT [facility] Endoscopy Patient Name: Robina Colon Procedure Date: 01/21/2025 Date of : 1975 Attending MD: Lety Castillo MD, Procedure: Colonoscopy Indications: Screening for malignant neoplasm in the colon Providers: Lety Castillo MD Referring MD: Buffy Cheng MD Medicines: Monitored Anesthesia Care Complications: No immediate complications. Procedure: Informed consent was obtained for the procedure, including moderate sedation after risks were discussed. Based on the pre-procedure assessment, including review of the patient's medical history, medications, allergies, and review of systems, the patient was deemed to be an appropriate candidate for sedation. A timeout was performed. Continuous ECG monitoring, pulse oximetry, blood pressure monitoring, and direct observation were performed. The Colonoscope was introduced through the anus and advanced to the terminal ileum, with identification of the appendiceal orifice and IC valve. The colonoscopy was performed without difficulty. The patient tolerated the procedure well. The quality of the bowel preparation was evaluated using the BBPS (Cedar Bowel Preparation Scale) with scores of: Right Colon = 3 (entire mucosa seen well with no residual staining, small fragments of stool or opaque liquid), Transverse Colon = 3 (entire mucosa seen well with no residual staining, small fragments of stool or opaque liquid) and Left Colon = 3 (entire mucosa seen well with no residual staining, small fragments of stool or opaque liquid). The total BBPS score equals 9. The quality of the bowel preparation was excellent. A physical exam was performed. Informed consent was obtained from the patient after explaining all of the risks (perforation, bleeding, infection, and adverse effects to the medication), benefits and alternatives to the procedure which the patient appeared to understand and so stated. The patient was connected to the monitoring devices and placed in the left lateral position. Continuous oxygen was provided with a nasal cannula and IV medicine administered through an indwelling cannula. After adequate conscious sedation was achieved, a digital exam was performed and the colonoscope introduced into the rectum and advanced under direct visualization to the terminal ileum. The terminal ileum and cecum were identified by visual landmarks. The scope was subsequently removed slowly while carefully examining the color, texture, anatomy and integrity of the mucosa on the way out. In the rectum, the scope was retroflexed to evaluate for internal hemorrhoids and anorectal pathology. The patient was subsequently transferred to the recovery area in satisfactory condition. Estimated Blood Loss: Estimated blood loss: none. Findings: DANITZA without stricture or mass. The terminal ileum appeared normal. One 4 mm sessile polyp in the transverse colon. The polyp was removed with a cold snare. Resection and retrieval were complete. Few tiny sigmoid diverticuli. Small-medium internal hemorrhoids. Impression: Polyp x1 Diverticulosis Recommendation: - Await pathology results. - Repeat colonoscopy in 7-10 years pending pathology. - No driving or operating heavy machinery today, resume usual activities tomorrow. - Advance to previous diet as tolerated. - Resume previous home medications. - Written discharge instructions were provided to the patient. - The findings and recommendations were discussed with the designated responsible adult. Attending Participation: I personally performed the entire procedure. Lety Castillo MD 01/21/2025 10:04:52 AM Number of Addenda: [address]; [place] [address] us Lety Castillo DO GI PROCEDURE ORDERABLES Negin l Result * MAMMO 3D AUBRIE SCREEN BILAT W OR WO CAD (09/18/2024 3:39 PM CABINETMAKER SUPERVISOR) Anatomical Region Laterality Modality Breast Bilateral Mammography 09/18/2024 3:39 PM CABINETMAKER SUPERVISOR Impressions 09/18/2024 4:58 PM CABINETMAKER SUPERVISOR IMPRESSION: Normal screening mammogram. OVERALL FINAL ASSESSMENT: BI-RADS CATEGORY 1 - Negative Recommend annual screening mammography. DICTATION LOCATION: [facility] Narrative 09/18/2024 4:58 PM CABINETMAKER SUPERVISOR EXAM: BILATERAL SCREENING DIGITAL MAMMOGRAM WITH 3D TOMOSYNTHESIS AND CAD DATE: 09/18/2024 3:39 PM INDICATION: Screening. COMPARISON STUDIES: July 16, 2023 through February 16, 2016 BREAST COMPOSITION: Scattered fibroglandular densities. FINDINGS: There is no concerning mass, asymmetry, malignant microcalcification or area of architectural distortion in either breast. There is no change when compared to previous mammograms. Computer aided diagnosis was utilized. 3D tomosynthesis performed in 4 standard projections reveals no evidence of architectural distortion or mass. Procedure Note Jono Barajas MD - 09/18/2024 EXAM: BILATERAL SCREENING DIGITAL MAMMOGRAM WITH 3D TOMOSYNTHESIS AND CAD DATE: 09/18/2024 3:39 PM INDICATION: Screening. COMPARISON STUDIES: July 16, 2023 through February 16, 2016 BREAST COMPOSITION: Scattered fibroglandular densities. FINDINGS: There is no concerning mass, asymmetry, malignant microcalcification or area of architectural distortion in either breast. There is no change when compared to previous mammograms. Computer aided diagnosis was utilized. 3D tomosynthesis performed in 4 standard projections reveals no evidence of architectural distortion or mass. IMPRESSION: Normal screening mammogram. OVERALL FINAL ASSESSMENT: BI-RADS CATEGORY 1 - Negative Recommend annual screening mammography. DICTATION LOCATION: [facility] us Abiodun Greenberg MD MAMMO ORDERABLES Final Resu lt from Last 3 Months or Most Recently Relevant to Health Maintenance Insurance [facility] BLUE ACCESS CHOICE RX [employer] BLUE ACCESS CHOICE Advance Directives For more information, please contact: [phone] * Full Code (Latest Code Status on File) Date Activated Date Inactivated Comments 01/21/2025 9:26 AM 01/21/2025 12:50 PM * Full Code Date Activated Date Inactivated Comments 03/21/2024 1:40 PM 03/22/2024 4:59 PM * Full Code Date Activated Date Inactivated Comments 03/21/2024 8:26 AM 03/21/2024 1:39 PM * Full Code Date Activated Date Inactivated Comments 01/15/2024 9:26 AM 01/15/2024 3:16 PM Care Teams Manager Program Management Relationship Specialty Start Date End Date Buffy Cheng MD [address] [address] PCP - General Family Practice 02/27/18
--- NOTE | 2025-06-29 18:59 | ED.URI ---
HPI - URI/Sore Throat General Chief Complaint: Upper Respiratory Infection Stated Complaint: sore throat ear pain Source: patient and RN notes reviewed Mode of arrival: ambulatory Limitations: no limitations History of Present Illness HPI Narrative: Patient is a 40 year female who presents to the [facility] with complaints of sore throat and left ear pain since Sunday of last week. She states that the sore throat continues to worsen in severity. She reports some mild congestion. Denies cough. Denies recent fever. Denies chest pain or shortness of breath. She is unsure of any known sick contacts. Related Data Home Medications ?Medication ?Instructions ?Recorded ?Confirmed ?Last Taken ?Type levothyroxine 75 mcg tablet 75 mcg DAILY 07/06/20 06/01/23 Unknown History (Synthroid) acetaminophen 500 mg tablet 500 mg PO Q6H PRN 04/29/25 Unknown History (Tylenol Extra Strength) Allergies Allergy/AdvReac Type Severity Reaction Status Date / Time guaifenesin (From [employer]tex [place]) AdvReac Mild Hives Verified 06/29/25 19:07 phenylephrine (From Entex [place]) AdvReac Mild Hives Verified 06/29/25 19:07 phenylpropanolamine (From AdvReac Mild Hives Verified 06/29/25 19:07 Entex [place]) Sulfa (Sulfonamide AdvReac Mild Hives Verified 06/29/25 19:07 Antibiotics) sulfanilamide AdvReac Mild Hives Verified 06/29/25 19:07 Review of Systems Review of Systems: CONSTITUTIONAL: Denies fever, chills, or sweats. EYES: Denies visual changes, redness, or discharge. ENT: Reports otalgia and sore throat CARDIOVASCULAR: Denies chest pain, palpitations, or edema. RESPIRATORY: Denies cough or dyspnea. GASTROINTESTINAL: Denies abdominal pain, nausea, vomiting, or diarrhea. GENITOURINARY: Denies dysuria or hematuria. SKIN: Denies rash or itching. MUSCULOSKELETAL: Denies back pain, joint pain, or myalgia. NEUROLOGIC: Denies headache, numbness, or weakness. Pertinent positives per HPI. [facility] Past Medical History Medical History Hypothyroidism Surgical History Surgical History History of cervical spinal surgery Family History Family History Mother Hypertension Patient's mother is in good health Father Patient's father is in good health Family history of diabetes mellitus in first degree relative Sibling Patient's sister is in good health Social History Social History Smoking status: Never smoker Gender identity (if verbalized by the patient): Female Comments At the time of my signature, I reviewed and agree with the nursing past medical, surgical, social, and family history. There is no relevant family history pertinent to the patient complaint. Exam Narrative: GENERAL: This is a well-nourished, well-developed patient, in no apparent distress. HEAD: normocephalic, atraumatic. EYES: Sclera clear/white. Vision is grossly intact. EARS: External ears normal, auditory canals clear and without drainage, Right TM normal without perforation. Left TM erythematous. Hearing grossly intact. NOSE: External nose normal. + congestion. THROAT: Mucous membranes moist, oropharyngeal erythema. NECK: Neck supple, non-tender without lymphadenopathy, masses or thyromegaly. CARDIOVASCULAR: Regular rate and rhythm without murmurs, gallops, or rubs. RESPIRATORY: Clear to auscultation. Breath sounds equal bilaterally. No wheezes, rales, or rhonchi. GASTROINTESTINAL: Abdomen soft, non-tender, nondistended. Bowel sounds are active. No hepato-splenomegaly, or palpable masses. No guarding. SKIN: warm, intact with no suspicious lesions or rash, good texture and turgor. NEURO: awake, alert, and oriented to person, place and time. There were no obvious focal neurologic abnormalities. Course Course Level of Care: Express Care Visit Vital Signs Vital signs: Vital Signs Temperature 97.4 F L 06/29/25 19:00 Pulse Rate 70 06/29/25 19:00 Respiratory Rate 16 06/29/25 19:00 Blood Pressure 125/80 06/29/25 19:00 Pulse Oximetry 99 06/29/25 19:00 Oxygen Delivery Room Air 06/29/25 19:00 Temperature 97.4 F L 06/29/25 19:00 Pulse Rate 70 06/29/25 19:00 Respiratory Rate 16 06/29/25 19:00 Blood Pressure 125/80 06/29/25 19:00 Pulse Oximetry 99 06/29/25 19:00 Oxygen Delivery Room Air 06/29/25 19:00 Reviewed MDM - URI/Sore Throat MDM Narrative Medical decision making narrative: Take antibiotics as directed. May given ibuprofen and/or Tylenol as needed for pain and/or fever. Follow up with primary care provider in 7-10 days to have ear rechecked. Differential Diagnosis Differential diagnosis: Likely upper respiratory infection, otitis media, viral infection, pharyngitis and other (strep) Lab Data Attestation: I reviewed the patient's lab results. Critical Care Time Critical Care Time Critical Care Time: No Discharge Plan Discharge Clinical Impression: Acute left otitis media Patient Disposition: Home Condition: Stable Instructions: Antibiotic Form, Ear Infection (ED) Additional Instructions: Take antibiotics as directed. May given ibuprofen and/or Tylenol as needed for pain and/or fever. Follow up with primary care provider in 7-10 days to have ear rechecked. Patient Language: Kinyarwanda Prescriptions: New amoxicillin-pot clavulanate 875-125 mg tablet 1 tablet PO Q12H 10 Days Qty: 20 0RF No Action levothyroxine [Synthroid] 75 mcg tablet 75 mcg DAILY acetaminophen [Tylenol Extra Strength] 500 mg tablet 500 mg PO Q6H PRN Follow-up/Referrals: UNKNOWN,DOCTOR [Primary Care Provider] Time of Disposition: 19:14
[2025-06-29 19:00] VITALS: BP 125/80; PULSE 70; RESP 16; TEMP 36.3; O2SAT 99
[2025-06-29 19:14] LABS: EDSTREPNEGPOS1 Negative (Negative)
== END 2025-06-29 19:15 | disposition home or self-care (01) ==
PROVIDERS: Emergency Provider Nurse Practitioner
DX: H66.92 Otitis media, unspecified, left ear (principal); E03.9 Hypothyroidism, unspecified
CPT/HCPCS: 87081; 87880; 99213; G0463